=== PATIENT | female | born 1930 | race Two or more races ===

== ENCOUNTER 2016-09-23 10:31 | Inpatient (IN) | payer MEDICARE, OTHER ==
[~2016-09-23] VITALS: Ht 147.3 cm; Wt 128.8 kg
[~2016-09-23 10:31] MED LIST: ALBU18HF2 INH; AMIO200T2 PO; ASPI-869 PO; BRIM5DRO5 EACHEYE; FERR1TAB44 PO; LEVO88TA5 PO; LORA1TAB PO; METO-302 PO; METO10TA8 PO; MONT10TA22 PO; OMEP40CA37 PO; POLY15DR57 EACHEYE; POTA8TAB3 PO; SILD50TA PO
[2016-09-23] MEDS ORDERED: FUROSEMIDE 40 MG/4 ML VIAL ONE (10:44)
[2016-09-23 11:00] LABS: BASOPHILS # (AUTO) 0.1 /CMM (0.0-0.2); BASOPHILS % (AUTO) 0.8 % (0.0-2.0); DIFF TOTAL % 100 %; EOSINOPHILS % (AUTO) 0.4 % (0.0-6.0); HEMATOCRIT 34 % (33-45); LYMPHOCYTES # (AUTO) 1.2 /CMM (0.8-4.8); MEAN CORPUSCULAR HEMOGLOBIN 32 PG (26.0-33.0); MEAN CORPUSCULAR HGB CONC 32 g/dl (31.0-36.0); MEAN CORPUSCULAR VOLUME 98 fL (82-100); MONOCYTES # (AUTO) 0.9 /CMM (0.1-1.30); MONOCYTES % (AUTO) 10.9 % (2.0-12.0); NEUTROPHILS # (AUTO) 5.9 /CMM (1.8-8.9); NEUTROPHILS % (AUTO) 72.9 % (43.0-81.0); PLATELET COUNT (AUTO) 163 /CMM (150-450); WHITE BLOOD COUNT (AUTO) 8.1 K/uL (4.3-11.0)
[2016-09-23] MEDS ORDERED: FUROSEMIDE 40 MG/4 ML VIAL IV ONE (11:00)
[2016-09-23 11:09] LABS: INR 1.03 (0.87-1.13); PROTHROMBIN TIME 10.8 SECS (9.5-12.7)
[2016-09-23 11:10] LABS: KETONES,URINE Negative (NEGATIVE); LEUKOCYTE ESTERASE ,URINE Negative (NEGATIVE)
[2016-09-23 11:11] LABS: ADD UA MICROSCOPIC YES
[2016-09-23] MEDS ORDERED: POTA10TA15 PO (11:19)
[2016-09-23] MEDS ORDERED: ALLO100T PO (11:19)
[2016-09-23] MEDS ORDERED: SILD20TA2 PO (11:19)
[2016-09-23] MEDS ORDERED: FURO40TA5 PO (11:19)
[2016-09-23] MEDS ORDERED: ASPI-869 PO (11:19)
[2016-09-23] MEDS ORDERED: TIOT18CA3 IH (11:20)
[2016-09-23] MEDS ORDERED: BRIM5DRO5 LEFTEYE (11:25)
[2016-09-23 11:31] LABS: ADD URINE CULTURE NO
[2016-09-23] MEDS ORDERED: DORZ10DR11 LEFTEYE (11:32)
[2016-09-23 11:50] LABS: POTASSIUM 3.5 mmol/L (3.5-5.1)
[2016-09-23] MEDS ORDERED: diphenhydrAMINE HCL 50 MG/ML VIAL ONE (11:58)
[2016-09-23] MEDS ORDERED: OLANZAPINE 10 MG VIAL IM ONE (11:58)
[2016-09-23] MEDS ORDERED: LIDOCAINE /MPF 1% VIAL 5 ML VIAL ONE (11:59)
[2016-09-23 12:01] LABS: CALCIUM, SERUM 8.9 mg/dL (8.5-10.1); CREATININE 2.1 mg/dL (0.6-1.3); TROPONIN I 0.032 ng/mL (0.00-0.056)
[2016-09-23 12:02] LABS: ALBUMIN 3.1 g/dL (3.4-5.0); BILIRUBIN,DIRECT 0.2 mg/dL (0.0-0.2); BILIRUBIN,TOTAL 0.6 mg/dL (0.2-1.0); INDIRECT BILIRUBIN 0.4 mg/dL (0.0-1.1)
[2016-09-23 12:03] LABS: TOTAL PROTEIN, SERUM 6.8 g/dL (6.4-8.2)
[2016-09-23] MEDS ORDERED: ASPIRIN 325 MG TABLET ONE (12:58)
[2016-09-23] MEDS: ASPIRIN 325 MG TABLET PO SCH (13:02)
[2016-09-23 14:00] VITALS: BP 120/80
[2016-09-23] MEDS ORDERED: ONDANSETRON HCL/PF 4 MG/2 ML VIAL IVP PRN (16:00)
[2016-09-23] MEDS ORDERED: ALBUTEROL SULFATE 8 GM HFA.AER.AD IH PRN (16:00)
[2016-09-23] MEDS ORDERED: BUMETANIDE INJ 4 MG in IV NS 0.9% 24 ML IV ONE (17:00)
[2016-09-23] MEDS: AMIODARONE HCL 200 MG TABLET PO SCH (17:00)
[2016-09-23] MEDS: METOPROLOL SUCCINATE 25 MG TAB.SR.24H PO SCH (18:00)
[2016-09-23] MEDS ORDERED: SECONDARY IV SET 1 EA INFUS.SET MC ONE (18:08)
[2016-09-23] MEDS ORDERED: IV NS 0.9% 250 ML IV ONE (18:09)
[2016-09-23] MEDS ORDERED: IV SET PRIMARY PUMP SET 1 EA INFUS.SET MC ONE (18:10)
[2016-09-23] MEDS: SILDENAFIL CITRATE 20 MG TABLET PO SCH (18:29)
[2016-09-23] MEDS: METOLAZONE 2.5 MG TABLET PO SCH (18:29)
[2016-09-23] MEDS: TIMOLOL MAL/DORZOLAM HCL OPHTH 10 ML BOTTLE LEFTEYE SCH (18:30)
[2016-09-23] MEDS: BRIMONIDINE TARTRATE OPHT SOLN 5 ML BOTTLE LEFTEYE SCH (18:30)
[2016-09-23] MEDS: ACETAMINOPHEN 325 MG TABLET PO PRN (18:38)
[2016-09-23 20:00] VITALS: BP 109/53
[2016-09-23] MEDS: IPRATROPIUM NEB FS 0.5 MG/2.5 ML AMPUL.NEB NEB SCH (20:29)
[2016-09-23] MEDS ORDERED: diphenhydrAMINE HCL 50 MG/ML VIAL IV PRN (22:00)
[2016-09-23] MEDS: LORAZEPAM 1 MG TABLET PO PRN (22:47)
[2016-09-24] MEDS: IPRATROPIUM NEB FS 0.5 MG/2.5 ML AMPUL.NEB NEB SCH ×4 (01:17→20:18)
[2016-09-24 04:00] VITALS: BP 123/61
[2016-09-24 06:35] LABS: BASOPHILS % (AUTO) 0.2 % (0.0-2.0); DIFF TOTAL % 100 %; EOSINOPHILS # (AUTO) 0.1 /CMM (0.0-0.7); EOSINOPHILS % (AUTO) 0.8 % (0.0-6.0); HEMATOCRIT 34 % (33-45); HEMOGLOBIN 10.9 g/dL (11.5-14.8); LYMPHOCYTES % (AUTO) 11.5 % (20.0-44.0); MEAN CORPUSCULAR HEMOGLOBIN 32 PG (26.0-33.0); MEAN CORPUSCULAR HGB CONC 32 g/dl (31.0-36.0); MEAN CORPUSCULAR VOLUME 97 fL (82-100); MONOCYTES % (AUTO) 12.1 % (2.0-12.0); NEUTROPHILS # (AUTO) 6.3 /CMM (1.8-8.9); NEUTROPHILS % (AUTO) 75.4 % (43.0-81.0); PLATELET COUNT (AUTO) 171 /CMM (150-450); RED BLOOD CELL COUNT(AUTO) 3.47 MIL/uL (4.0-5.2); WHITE BLOOD COUNT (AUTO) 8.4 K/uL (4.3-11.0)
[2016-09-24 07:02] LABS: BILIRUBIN,TOTAL 0.5 mg/dL (0.2-1.0); CALCIUM, SERUM 9.3 mg/dL (8.5-10.1); PHOSPHORUS 3.7 mg/dL (2.5-4.9); TOTAL PROTEIN, SERUM 6.6 g/dL (6.4-8.2)
[2016-09-24 08:00] VITALS: BP 139/64
[2016-09-24] MEDS: ASPIRIN 325 MG TABLET PO SCH (09:00)
[2016-09-24] MEDS ORDERED: TIOTROPIUM BROMIDE 6 CAP/BOX CAP.W.DEV IH SCH (09:00)
[2016-09-24] MEDS ORDERED: POTASSIUM CHLORIDE 10 MEQ TABLET.SA PO SCH (09:00)
[2016-09-24] MEDS ORDERED: FERROUS SULFATE (325 MG) 325 MG/TAB TABLET PO SCH (09:00)
[2016-09-24] MEDS ORDERED: FUROSEMIDE 40 MG TABLET PO SCH (09:00)
[2016-09-24] MEDS: TIMOLOL MAL/DORZOLAM HCL OPHTH 10 ML BOTTLE LEFTEYE SCH ×2 (09:02→16:20)
[2016-09-24] MEDS: ASPIRIN EC 325 MG TABLET.DR PO SCH (09:02)
[2016-09-24] MEDS: BRIMONIDINE TARTRATE OPHT SOLN 5 ML BOTTLE LEFTEYE SCH ×2 (09:02→16:20)
[2016-09-24] MEDS: LEVOTHYROXINE SODIUM 88 MCG TABLET PO SCH (09:03)
[2016-09-24] MEDS: AMIODARONE HCL 200 MG TABLET PO SCH (09:03)
[2016-09-24] MEDS: ALLOPURINOL 100 MG TABLET PO SCH (09:03)
[2016-09-24] MEDS: SILDENAFIL CITRATE 20 MG TABLET PO SCH ×2 (09:04→16:21)
[2016-09-24] MEDS: METOLAZONE 2.5 MG TABLET PO SCH (09:04)
[2016-09-24] MEDS: METOPROLOL SUCCINATE 25 MG TAB.SR.24H PO SCH (09:04)
[2016-09-24] MEDS: MONTELUKAST SODIUM (10MG) 10 MG TABLET PO SCH (09:04)
[2016-09-24 10:30] LABS: THYROID STIMULATING HORMONE 14.503 uIU/mL (0.358-3.74)
[2016-09-24] MEDS ORDERED: Magnesium 1GM/D5W 100ML PREMIX 100 ML IV SCH (11:30)
[2016-09-24] MEDS ORDERED: SECONDARY IV SET 1 EA INFUS.SET MC ONE (11:35)
[2016-09-24] MEDS: POTASSIUM CHLORIDE 10 MEQ TABLET.SA PO SCH ×2 (12:53→16:21)
[2016-09-24 16:00] VITALS: BP 129/62
[2016-09-24 20:00] VITALS: BP 117/51
[2016-09-24] MEDS ORDERED: POTASSIUM CHLORIDE 20 MEQ TAB.PRT.SR PO ONE (22:00)
[2016-09-24] MEDS ORDERED: MENTHOL/CETYLPYRD (CEPACOL) 1 LOZ LOZENGE PO PRN (22:00)
[2016-09-24] MEDS ORDERED: BUMETANIDE INJ 4 MG in IV NS 0.9% 24 ML IV ONE (22:00)
[2016-09-24] MEDS: LORAZEPAM 1 MG TABLET PO PRN (22:18)
[2016-09-24 23:15] VITALS: BP 158/67
[2016-09-24] MEDS: ACETAMINOPHEN 325 MG TABLET PO PRN (23:36)
[2016-09-25] VITALS (86 sets, daily range): BP systolic 62–160; BP diastolic 31–97
[2016-09-25] MEDS ORDERED: SODIUM BICARBONATE SYR 50 MEQ/50 ML DISP.SYRIN IV ONE ×2 (01:30→01:33)
[2016-09-25] MEDS: IPRATROPIUM NEB FS 0.5 MG/2.5 ML AMPUL.NEB NEB SCH ×4 (01:30→20:19)
[2016-09-25] MEDS ORDERED: EPINEPHRINE (1:10,000) SYRINGE 1 MG/10 ML DISP.SYRIN IVP ONE ×2 (01:30→01:33)
[2016-09-25 02:34] LABS: BASOPHILS # (AUTO) 0.1 /CMM (0.0-0.2); BASOPHILS % (AUTO) 0.5 % (0.0-2.0); DIFF TOTAL % 100 %; EOSINOPHILS # (AUTO) 0.1 /CMM (0.0-0.7); EOSINOPHILS % (AUTO) 0.8 % (0.0-6.0); HEMATOCRIT 33 % (33-45); HEMOGLOBIN 10.4 g/dL (11.5-14.8); LYMPHOCYTES # (AUTO) 2.9 /CMM (0.8-4.8); LYMPHOCYTES % (AUTO) 24.3 % (20.0-44.0); MEAN CORPUSCULAR HEMOGLOBIN 31 PG (26.0-33.0); MEAN CORPUSCULAR HGB CONC 31 g/dl (31.0-36.0); MEAN CORPUSCULAR VOLUME 99 fL (82-100); MONOCYTES # (AUTO) 0.6 /CMM (0.1-1.30); MONOCYTES % (AUTO) 5.2 % (2.0-12.0); NEUTROPHILS # (AUTO) 8.4 /CMM (1.8-8.9); NEUTROPHILS % (AUTO) 69.2 % (43.0-81.0); PLATELET COUNT (AUTO) 180 /CMM (150-450); RED BLOOD CELL COUNT(AUTO) 3.38 MIL/uL (4.0-5.2); WHITE BLOOD COUNT (AUTO) 12.1 K/uL (4.3-11.0)
[2016-09-25] MEDS ORDERED: EPINEPHRINE (1:1000) 1 MG/ML AMPUL ONE ×2 (02:40→06:25)
[2016-09-25] MEDS ORDERED: IV D5W 250 ML IV ONE ×2 (02:40→06:25)
[2016-09-25 02:41] LABS: CALCIUM, SERUM 8.6 mg/dL (8.5-10.1); CREATININE 2.3 mg/dL (0.6-1.3); POTASSIUM 3.3 mmol/L (3.5-5.1)
[2016-09-25] MEDS ORDERED: IV SET PRIMARY PUMP SET 1 EA INFUS.SET MC ONE ×2 (02:41→08:24)
[2016-09-25] MEDS ORDERED: NOREPINEPHRINE 8 MG in IV D5W 500 ML IV PRN (03:00)
[2016-09-25] MEDS ORDERED: EPINEPHRINE (1:1000) 2 MG in IV D5W 250 ML IV PRN ×2 (03:00→04:30)
[2016-09-25 03:17] LABS: ABG BASE EXCESS 7.4 mmol/L; ABG HCO3 33.6 mmol/L; ABG PCO2 55.7 mmHg (35.0-45.0); ABG PH 7.398 (7.350-7.450); ABG PO2 213.8 mmHg (75.0-100.0); ABG TOTAL HEMOGLOBIN 10.9 G/dL (12.0-16.0); ALLEN TEST Pass; AaDO2 443.5 mmHg; O2Hb 96.8 % (94.0-97.0)
[2016-09-25] MEDS ORDERED: PROPOFOL 100 ML IV PRN (07:00)
[2016-09-25] MEDS: LEVOTHYROXINE SODIUM 88 MCG TABLET PO SCH (08:29)
[2016-09-25] MEDS ORDERED: BUMETANIDE INJ 8 MG in IV NS 0.9% 48 ML IV ONE (08:30)
[2016-09-25] MEDS ORDERED: PHENYLEPHRINE 80 MG in IV D5W 250 ML IV PRN (08:30)
[2016-09-25] MEDS ORDERED: SECONDARY IV SET 1 EA INFUS.SET MC ONE (08:36)
[2016-09-25] MEDS ORDERED: IV NS 0.9% 250 ML IV ONE (08:36)
[2016-09-25] MEDS: POTASSIUM CL. PREMIX PERIPHER. 50 ML IV SCH ×2 (08:40→10:05)
[2016-09-25] MEDS ORDERED: AMIODARONE HCL 200 MG TABLET PO SCH (09:00)
[2016-09-25 09:12] LABS: ABG BASE EXCESS 7.8 mmol/L; ABG HCO3 32.3 mmol/L; ABG PCO2 44.8 mmHg (35.0-45.0); ABG PH 7.476 (7.350-7.450); ABG PO2 79.7 mmHg (75.0-100.0); ABG TOTAL HEMOGLOBIN 11.6 G/dL (12.0-16.0); ALLEN TEST Pass; AaDO2 298.8 mmHg
[2016-09-25] MEDS: ASPIRIN EC 325 MG TABLET.DR PO SCH (09:19)
[2016-09-25] MEDS: ALLOPURINOL 100 MG TABLET PO SCH (09:19)
[2016-09-25] MEDS: MONTELUKAST SODIUM (10MG) 10 MG TABLET PO SCH (09:19)
[2016-09-25] MEDS: SILDENAFIL CITRATE 20 MG TABLET PO SCH ×2 (09:19→17:03)
[2016-09-25] MEDS: Magnesium 1GM/D5W 100ML PREMIX 1 G in PREMIX 1 EA IV SCH ×2 (09:24→10:25)
[2016-09-25] MEDS: METOPROLOL SUCCINATE 25 MG TAB.SR.24H PO SCH (10:01)
[2016-09-25] MEDS: METOLAZONE 2.5 MG TABLET PO SCH (10:03)
[2016-09-25] MEDS: TIMOLOL MAL/DORZOLAM HCL OPHTH 10 ML BOTTLE LEFTEYE SCH ×2 (10:05→17:01)
[2016-09-25] MEDS: BRIMONIDINE TARTRATE OPHT SOLN 5 ML BOTTLE LEFTEYE SCH ×2 (10:05→17:01)
[2016-09-25 12:34] LABS: TROPONIN I 0.192 ng/mL (0.00-0.056)
[2016-09-25] MEDS ORDERED: Z GUARD REMEDY 2 OZ OINT TP PRN (19:00)
[2016-09-26] VITALS (67 sets, daily range): BP systolic 86–152; BP diastolic 34–66
[2016-09-26] MEDS ORDERED: IV NS 0.9% 250 ML IV ONE ×2 (01:56→23:12)
[2016-09-26] MEDS: IPRATROPIUM NEB FS 0.5 MG/2.5 ML AMPUL.NEB NEB SCH ×4 (02:20→19:59)
[2016-09-26 05:06] LABS: TROPONIN I 0.148 ng/mL (0.00-0.056)
[2016-09-26 05:08] LABS: ALBUMIN 2.4 g/dL (3.4-5.0); BILIRUBIN,TOTAL 1.2 mg/dL (0.2-1.0); CALCIUM, SERUM 8.9 mg/dL (8.5-10.1); CREATININE 2.2 mg/dL (0.6-1.3); PHOSPHORUS 2.7 mg/dL (2.5-4.9); TOTAL PROTEIN, SERUM 5.9 g/dL (6.4-8.2)
[2016-09-26 05:15] LABS: DIFF TOTAL % 100 %; HEMATOCRIT 32 % (33-45); HEMOGLOBIN 10.3 g/dL (11.5-14.8); LYMPHOCYTES % (AUTO) 6.7 % (20.0-44.0); MEAN CORPUSCULAR HEMOGLOBIN 31 PG (26.0-33.0); MEAN CORPUSCULAR HGB CONC 32 g/dl (31.0-36.0); MEAN CORPUSCULAR VOLUME 97 fL (82-100); MONOCYTES # (AUTO) 1.1 /CMM (0.1-1.30); MONOCYTES % (AUTO) 7.8 % (2.0-12.0); NEUTROPHILS # (AUTO) 12.5 /CMM (1.8-8.9); NEUTROPHILS % (AUTO) 85.5 % (43.0-81.0); PLATELET COUNT (AUTO) 170 /CMM (150-450); RED BLOOD CELL COUNT(AUTO) 3.29 MIL/uL (4.0-5.2); WHITE BLOOD COUNT (AUTO) 14.7 K/uL (4.3-11.0)
[2016-09-26 05:25] LABS: POTASSIUM 2.8 mmol/L (3.5-5.1)
[2016-09-26] MEDS ORDERED: Magnesium 1GM/D5W 100ML PREMIX 100 ML IV ONE (06:00)
[2016-09-26] MEDS ORDERED: POTASSIUM CHLORIDE 20 MEQ POWDER PACKET ONE (06:00)
[2016-09-26] MEDS ORDERED: POTASSIUM CHLORIDE 20 MEQ TAB.PRT.SR PO SCH (06:00)
[2016-09-26] MEDS: Magnesium 1GM/D5W 100ML PREMIX 100 ML IV SCH ×2 (06:05→07:34)
[2016-09-26] MEDS: POTASSIUM CHLORIDE 20 MEQ POWDER PACKET GT SCH ×5 (06:10→11:35)
[2016-09-26] MEDS: LEVOTHYROXINE SODIUM 88 MCG TABLET PO SCH (07:34)
[2016-09-26] MEDS: BRIMONIDINE TARTRATE OPHT SOLN 5 ML BOTTLE LEFTEYE SCH ×2 (08:44→16:56)
[2016-09-26] MEDS: TIMOLOL MAL/DORZOLAM HCL OPHTH 10 ML BOTTLE LEFTEYE SCH ×2 (08:44→16:56)
[2016-09-26] MEDS: ASPIRIN EC 325 MG TABLET.DR PO SCH (09:46)
[2016-09-26] MEDS: ALLOPURINOL 100 MG TABLET PO SCH (09:47)
[2016-09-26] MEDS: MONTELUKAST SODIUM (10MG) 10 MG TABLET PO SCH (09:47)
[2016-09-26] MEDS: METOLAZONE 2.5 MG TABLET PO SCH (09:47)
[2016-09-26] MEDS: SILDENAFIL CITRATE 20 MG TABLET PO SCH ×2 (09:47→16:56)
[2016-09-26] MEDS: METOPROLOL SUCCINATE 25 MG TAB.SR.24H PO SCH (09:53)
[2016-09-26] MEDS ORDERED: FEE PK DOSING 1 MIN EA MC ONE (10:51)
[2016-09-26] MEDS ORDERED: VANCOMYCIN 1 GM in IV D5W 250 ML IV SCH ×2 (11:00→12:00)
[2016-09-26] MEDS ORDERED: BUMETANIDE INJ 8 MG in IV NS 0.9% 48 ML IV ONE (12:00)
[2016-09-26] MEDS: CEFTRIAXONE 1 G in IV D5W 50 ML IV SCH (13:08)
[2016-09-26] MEDS ORDERED: SECONDARY IV SET 1 EA INFUS.SET MC ONE (13:13)
[2016-09-26 13:46] LABS: ABG HCO3 37.4 mmol/L; ABG PCO2 46.9 mmHg (35.0-45.0); ABG PO2 96.7 mmHg (75.0-100.0); ABG TOTAL HEMOGLOBIN 11.9 G/dL (12.0-16.0); ALLEN TEST Pass; O2Hb 95.3 % (94.0-97.0)
[2016-09-26] MEDS: ACETAMINOPHEN 325 MG TABLET PO PRN (14:12)
[2016-09-26] MEDS: ACETAMINOPHEN 650 MG/20.3 ML UDC NG PRN (21:04)
[2016-09-27] VITALS (58 sets, daily range): BP systolic 90–157; BP diastolic 39–74
[2016-09-27] MEDS: IPRATROPIUM NEB FS 0.5 MG/2.5 ML AMPUL.NEB NEB SCH ×4 (02:27→19:49)
[2016-09-27 04:53] LABS: DIFF TOTAL % 100 %; EOSINOPHILS % (AUTO) 0.1 % (0.0-6.0); HEMATOCRIT 33 % (33-45); HEMOGLOBIN 10.9 g/dL (11.5-14.8); LYMPHOCYTES # (AUTO) 1.3 /CMM (0.8-4.8); LYMPHOCYTES % (AUTO) 9.9 % (20.0-44.0); MEAN CORPUSCULAR HEMOGLOBIN 32 PG (26.0-33.0); MEAN CORPUSCULAR HGB CONC 33 g/dl (31.0-36.0); MEAN CORPUSCULAR VOLUME 98 fL (82-100); MONOCYTES # (AUTO) 1.1 /CMM (0.1-1.30); MONOCYTES % (AUTO) 8.3 % (2.0-12.0); NEUTROPHILS # (AUTO) 10.7 /CMM (1.8-8.9); NEUTROPHILS % (AUTO) 81.7 % (43.0-81.0); PLATELET COUNT (AUTO) 157 /CMM (150-450); RED BLOOD CELL COUNT(AUTO) 3.38 MIL/uL (4.0-5.2); WHITE BLOOD COUNT (AUTO) 13.1 K/uL (4.3-11.0)
[2016-09-27 05:12] LABS: CALCIUM, SERUM 9.2 mg/dL (8.5-10.1); CREATININE 2.5 mg/dL (0.6-1.3); PHOSPHORUS 3.3 mg/dL (2.5-4.9); POTASSIUM 3.2 mmol/L (3.5-5.1)
[2016-09-27] MEDS: MONTELUKAST SODIUM (10MG) 10 MG TABLET PO SCH (09:50)
[2016-09-27] MEDS: BRIMONIDINE TARTRATE OPHT SOLN 5 ML BOTTLE LEFTEYE SCH ×2 (09:50→16:41)
[2016-09-27] MEDS: METOLAZONE 2.5 MG TABLET PO SCH (09:50)
[2016-09-27] MEDS: METOPROLOL SUCCINATE 25 MG TAB.SR.24H PO SCH (09:50)
[2016-09-27] MEDS: POTASSIUM CHLORIDE 20 MEQ TAB.PRT.SR PO SCH ×3 (09:51→11:35)
[2016-09-27] MEDS: ASPIRIN EC 325 MG TABLET.DR PO SCH (09:51)
[2016-09-27] MEDS: SILDENAFIL CITRATE 20 MG TABLET PO SCH ×2 (09:51→16:40)
[2016-09-27] MEDS: ALLOPURINOL 100 MG TABLET PO SCH (09:51)
[2016-09-27] MEDS: TIMOLOL MAL/DORZOLAM HCL OPHTH 10 ML BOTTLE LEFTEYE SCH ×2 (09:52→16:41)
[2016-09-27] MEDS: LEVOTHYROXINE SODIUM 88 MCG TABLET PO SCH (09:53)
[2016-09-27] MEDS: CEFTRIAXONE 1 G in IV D5W 50 ML IV SCH (11:35)
[2016-09-27 13:47] LABS: ALBUMIN 2.2 g/dL (3.4-5.0); BILIRUBIN,DIRECT 0.7 mg/dL (0.0-0.2); BILIRUBIN,TOTAL 1.2 mg/dL (0.2-1.0); INDIRECT BILIRUBIN 0.5 mg/dL (0.0-1.1); TOTAL PROTEIN, SERUM 6.1 g/dL (6.4-8.2)
[2016-09-27 14:05] LABS: LACTIC ACID 1.5 mmol/L (0.4-2.0)
[2016-09-27] MEDS: FIBERSOURCE HN 1,000 ML BOTTLE GT PRN (21:30)
[2016-09-28] VITALS (56 sets, daily range): BP systolic 94–145; BP diastolic 33–69
[2016-09-28] MEDS ORDERED: IV NS 0.9% 250 ML IV ONE ×3 (01:05→16:49)
[2016-09-28] MEDS: IPRATROPIUM NEB FS 0.5 MG/2.5 ML AMPUL.NEB NEB SCH ×4 (01:23→19:30)
[2016-09-28 04:19] LABS: DIFF TOTAL % 100 %; EOSINOPHILS % (AUTO) 0.2 % (0.0-6.0); HEMATOCRIT 34 % (33-45); HEMOGLOBIN 10.9 g/dL (11.5-14.8); LYMPHOCYTES # (AUTO) 1.2 /CMM (0.8-4.8); LYMPHOCYTES % (AUTO) 9.5 % (20.0-44.0); MEAN CORPUSCULAR HEMOGLOBIN 32 PG (26.0-33.0); MEAN CORPUSCULAR HGB CONC 32 g/dl (31.0-36.0); MEAN CORPUSCULAR VOLUME 99 fL (82-100); MONOCYTES # (AUTO) 0.9 /CMM (0.1-1.30); NEUTROPHILS # (AUTO) 10.2 /CMM (1.8-8.9); NEUTROPHILS % (AUTO) 83.3 % (43.0-81.0); PLATELET COUNT (AUTO) 166 /CMM (150-450); RED BLOOD CELL COUNT(AUTO) 3.41 MIL/uL (4.0-5.2); WHITE BLOOD COUNT (AUTO) 12.2 K/uL (4.3-11.0)
[2016-09-28 04:40] LABS: CALCIUM, SERUM 9.1 mg/dL (8.5-10.1); CREATININE 2.2 mg/dL (0.6-1.3); PHOSPHORUS 3.4 mg/dL (2.5-4.9)
[2016-09-28 04:43] LABS: POTASSIUM 2.5 mmol/L (3.5-5.1)
[2016-09-28] MEDS ORDERED: POTASSIUM CL. PREMIX PERIPHER. 100 ML ONE (04:59)
[2016-09-28] MEDS ORDERED: IV SET PRIMARY PUMP SET 1 EA INFUS.SET MC ONE ×2 (05:00→15:46)
[2016-09-28] MEDS: POTASSIUM CL. PREMIX PERIPHER. 50 ML IV SCH ×6 (05:03→11:06)
[2016-09-28 05:38] LABS: ANISOCYTOSIS 1+; BAND % (MANUAL) 5 % (0.0-5.0); BASOPHILS % (MANUAL) 0 % (0.0-2.0); EOSINOPHILS % (MANUAL) 1 % (0-4); LYMPHOCYTES % (MANUAL) 7 % (16-48); PLATELET ESTIMATE ADEQUATE
[2016-09-28] MEDS ORDERED: POTASSIUM CHLORIDE 20 MEQ TAB.PRT.SR PO SCH (07:00)
[2016-09-28] MEDS ORDERED: POTASSIUM CHLORIDE 20 MEQ POWDER PACKET GT ONE (08:00)
[2016-09-28] MEDS: BRIMONIDINE TARTRATE OPHT SOLN 5 ML BOTTLE LEFTEYE SCH ×2 (08:30→16:22)
[2016-09-28] MEDS: MONTELUKAST SODIUM (10MG) 10 MG TABLET PO SCH (08:30)
[2016-09-28] MEDS: TIMOLOL MAL/DORZOLAM HCL OPHTH 10 ML BOTTLE LEFTEYE SCH ×2 (08:30→16:22)
[2016-09-28] MEDS: METOPROLOL SUCCINATE 25 MG TAB.SR.24H PO SCH (08:31)
[2016-09-28] MEDS: LEVOTHYROXINE SODIUM 88 MCG TABLET PO SCH (08:31)
[2016-09-28] MEDS: ASPIRIN EC 325 MG TABLET.DR PO SCH (08:31)
[2016-09-28] MEDS: SILDENAFIL CITRATE 20 MG TABLET PO SCH ×2 (08:31→16:21)
[2016-09-28] MEDS: ALLOPURINOL 100 MG TABLET PO SCH (08:31)
[2016-09-28] MEDS: METOLAZONE 2.5 MG TABLET PO SCH (08:31)
[2016-09-28] MEDS ORDERED: VANCOMYCIN 1 GM in IV D5W 250 ML IV SCH (12:00)
[2016-09-28] MEDS ORDERED: BUMETANIDE INJ 8 MG in IV NS 0.9% 48 ML IV ONE (12:00)
[2016-09-28] MEDS: CEFTRIAXONE 1 G in IV D5W 50 ML IV SCH (13:25)
[2016-09-28] MEDS ORDERED: BLOOD IV SET 1 EA INFUS.SET MC ONE (15:46)
[2016-09-28] MEDS: FIBERSOURCE HN 1,000 ML BOTTLE GT PRN (18:44)
[2016-09-29] VITALS (47 sets, daily range): BP systolic 86–131; BP diastolic 31–86
[2016-09-29] MEDS: IPRATROPIUM NEB FS 0.5 MG/2.5 ML AMPUL.NEB NEB SCH ×3 (01:37→13:44)
[2016-09-29] MEDS: ACETAMINOPHEN 650 MG/20.3 ML UDC NG PRN (03:30)
[2016-09-29 05:07] LABS: BASOPHILS % (AUTO) 0.3 % (0.0-2.0); DIFF TOTAL % 100 %; HEMATOCRIT 34 % (33-45); HEMOGLOBIN 10.8 g/dL (11.5-14.8); LYMPHOCYTES # (AUTO) 1.9 /CMM (0.8-4.8); LYMPHOCYTES % (AUTO) 13.1 % (20.0-44.0); MEAN CORPUSCULAR HEMOGLOBIN 31 PG (26.0-33.0); MEAN CORPUSCULAR HGB CONC 32 g/dl (31.0-36.0); MEAN CORPUSCULAR VOLUME 98 fL (82-100); MONOCYTES # (AUTO) 1.2 /CMM (0.1-1.30); NEUTROPHILS # (AUTO) 11.5 /CMM (1.8-8.9); NEUTROPHILS % (AUTO) 78.6 % (43.0-81.0); PLATELET COUNT (AUTO) 191 /CMM (150-450); RED BLOOD CELL COUNT(AUTO) 3.46 MIL/uL (4.0-5.2); WHITE BLOOD COUNT (AUTO) 14.6 K/uL (4.3-11.0)
[2016-09-29 05:21] LABS: CREATININE 2.3 mg/dL (0.6-1.3); PHOSPHORUS 1.9 mg/dL (2.5-4.9)
[2016-09-29] MEDS ORDERED: Magnesium 1GM/D5W 100ML PREMIX 100 ML IV SCH (07:40)
[2016-09-29] MEDS ORDERED: SECONDARY IV SET 1 EA INFUS.SET MC ONE (08:07)
[2016-09-29] MEDS: ASPIRIN EC 325 MG TABLET.DR PO SCH (08:11)
[2016-09-29] MEDS: NEUTRA PHOS 1 POWD.PACKET PO SCH ×2 (08:11→16:00)
[2016-09-29] MEDS: MONTELUKAST SODIUM (10MG) 10 MG TABLET PO SCH (08:11)
[2016-09-29] MEDS: ALLOPURINOL 100 MG TABLET PO SCH (08:11)
[2016-09-29] MEDS: Magnesium 1GM/D5W 100ML PREMIX 100 ML IV SCH ×2 (08:11→09:37)
[2016-09-29] MEDS: METOLAZONE 2.5 MG TABLET PO SCH (08:11)
[2016-09-29] MEDS: LEVOTHYROXINE SODIUM 88 MCG TABLET PO SCH (08:11)
[2016-09-29] MEDS: SILDENAFIL CITRATE 20 MG TABLET PO SCH ×2 (08:11→16:46)
[2016-09-29] MEDS: TIMOLOL MAL/DORZOLAM HCL OPHTH 10 ML BOTTLE LEFTEYE SCH ×2 (08:12→16:46)
[2016-09-29] MEDS: BRIMONIDINE TARTRATE OPHT SOLN 5 ML BOTTLE LEFTEYE SCH ×2 (08:12→16:46)
[2016-09-29] MEDS: METOPROLOL SUCCINATE 25 MG TAB.SR.24H PO SCH (08:12)
[2016-09-29] MEDS ORDERED: POTASSIUM CHLORIDE 20 MEQ POWDER PACKET GT SCH (09:00)
[2016-09-29] MEDS ORDERED: POTASSIUM CHLORIDE 20 MEQ POWDER PACKET GT ONE ×2 (10:00→11:00)
[2016-09-29] MEDS: CEFTRIAXONE 1 G in IV D5W 50 ML IV SCH (11:17)
[2016-09-29] MEDS ORDERED: VANCOMYCIN 1 GM in IV D5W 250 ML IV SCH (12:00)
[2016-09-29] MEDS ORDERED: BUMETANIDE INJ 8 MG in IV NS 0.9% 48 ML IV ONE (14:00)
[2016-09-29] MEDS ORDERED: DC PROPOFOL WHEN EXTUBATED XX PRN (18:00)
== END 2016-09-29 19:01 | disposition expired | DRG 870 ==
LOC: ER 10:36 → TELE 12:14 → MED 09-24 11:53 → ICU 09-25 02:17
PROVIDERS: ADMIT Nurse Practitioner Acute Care; ATTEND Nurse Practitioner Acute Care
PROC: 5A1955Z Respiratory Ventilation, Greater than 96 Consecutive Hours (ICD-10-PCS; principal; 2016-09-25)
PROC: 0BH17EZ Insertion of Endotracheal Airway into Trachea, Via Natural or Artificial Opening (ICD-10-PCS; 2016-09-25)
PROC: 02HV33Z Insertion of Infusion Device into Superior Vena Cava, Percutaneous Approach (ICD-10-PCS; 2016-09-25)
PROC: B548ZZA Ultrasonography of Superior Vena Cava, Guidance (ICD-10-PCS; 2016-09-25)
PROC: 5A12012 Performance of Cardiac Output, Single, Manual (ICD-10-PCS; 2016-09-25)
DX: A41.9 Sepsis, unspecified organism (principal); I50.33 Acute on chronic diastolic (congestive) heart failure; E43 Unspecified severe protein-calorie malnutrition; J96.02 Acute respiratory failure with hypercapnia; J96.01 Acute respiratory failure with hypoxia; G93.41 Metabolic encephalopathy; J18.9 Pneumonia, unspecified organism; N17.0 Acute kidney failure with tubular necrosis; I13.0 Hypertensive heart and chronic kidney disease with heart failure and stage 1 through stage 4 chronic kidney disease, or unspecified chronic kidney disease; D68.59 Other primary thrombophilia; E87.0 Hyperosmolality and hypernatremia; L03.115 Cellulitis of right lower limb; L03.116 Cellulitis of left lower limb; N17.9 Acute kidney failure, unspecified; N39.0 Urinary tract infection, site not specified; Z68.43 Body mass index [BMI] 50.0-59.9, adult; G93.1 Anoxic brain damage, not elsewhere classified; E87.3 Alkalosis; Z51.5 Encounter for palliative care; I25.10 Atherosclerotic heart disease of native coronary artery without angina pectoris; E03.9 Hypothyroidism, unspecified; E11.22 Type 2 diabetes mellitus with diabetic chronic kidney disease; E66.01 Morbid (severe) obesity due to excess calories; D50.9 Iron deficiency anemia, unspecified; E78.5 Hyperlipidemia, unspecified; E87.6 Hypokalemia; G47.30 Sleep apnea, unspecified; I27.2 Other secondary pulmonary hypertension; J45.909 Unspecified asthma, uncomplicated; K21.9 Gastro-esophageal reflux disease without esophagitis; N18.9 Chronic kidney disease, unspecified; Z87.891 Personal history of nicotine dependence; Z99.81 Dependence on supplemental oxygen; G90.8 Other disorders of autonomic nervous system; I48.91 Unspecified atrial fibrillation; M10.9 Gout, unspecified; I34.2 Nonrheumatic mitral (valve) stenosis; R00.1 Bradycardia, unspecified; R23.8 Other skin changes; E83.42 Hypomagnesemia; S30.811A Abrasion of abdominal wall, initial encounter; X58.XXXA Exposure to other specified factors, initial encounter; Y93.9 Activity, unspecified; Y92.89 Other specified places as the place of occurrence of the external cause; Y99.9 Unspecified external cause status; S41.102A Unspecified open wound of left upper arm, initial encounter; S40.022A Contusion of left upper arm, initial encounter; S40.021A Contusion of right upper arm, initial encounter; S20.219A Contusion of unspecified front wall of thorax, initial encounter; S81.802A Unspecified open wound, left lower leg, initial encounter; S81.801A Unspecified open wound, right lower leg, initial encounter; L53.9 Erythematous condition, unspecified; I87.8 Other specified disorders of veins; I87.2 Venous insufficiency (chronic) (peripheral); B96.89 Other specified bacterial agents as the cause of diseases classified elsewhere; R65.20 Severe sepsis without septic shock
CPT/HCPCS: 31720; 36415; 36569; 36600; 71010-TC; 74000-TC; 80048-TC; 80053-TC; 80061-TC; 80076-TC; 80202-TC; 81000-TC; 82728-TC; 82803-TC; 83540-TC; 83605-TC; 83735-TC; 83880; 84100-TC; 84443-TC; 84484-TC; 85025-TC; 85730-TC; 87040-TC; 87070-TC; 87081-TC; 87086-TC; 87186-TC; 92950-TC; 94002-TC; 94003-TC; 94760-TC; 94799-TC; 95819-TC; 99082-TC; A4216; A4217; A4606; A6402; C1751; J0171; J0696; J1200; J1940; J2370; J3370; J3475; J3480; J3490; J7030; J7050; J7060; Z7610